=== PATIENT | female | born 1965 | race Caucasian/White ===

== ENCOUNTER 2025-03-04 00:54 | Emergency (ER) | payer BC ==
[~2025-03-04] VITALS: Ht 167.6 cm; Wt 65.9 kg
[2025-03-04 00:59] VITALS: BP 116/40; PULSE 61; O2SAT 97
[2025-03-04 01:55] VITALS: RESP 10
--- NOTE | 2025-03-04 02:29 | Physician Documentation ---
History of Present Illness ~ Chief Complaint: See Chief Complaint Stated Complaint: HANDS AND FEET ICHY Time Seen by MD: 02:03 Mode of Arrival: POV HPI This is a very pleasant 59-year-old female who presents for evaluation of sudden onset unprovoked bilateral palm and swollen redness and itching that began approximately 11:00 p.m.. No obvious trigger provocation. She does report that she had spent 9 hours driving earlier today because she had to take a passport to her son in [place] and drive back. She also consumed a unusual high amount of water today on advice of her daughter. Otherwise no unusual e xposures, no new contacts, no new foods. No known history of liver disease. Does not drink. Does not take any estrogen supplementation. She is generally healthy. Reports a small right upper quadrant cramp earlier today, now resolved. Does not smoke, does not drink, does not do drugs Medication Reconciliation Allergies: Coded Allergies: No Known Allergies (Unverified , 03/04/25) Review of Systems ROS 10 point review of systems was performed and unless noted above in HPI is negative for acute process/complaint. Physical Exam Vital Signs: Temperature: 97.8, Source: Temporal, Heart Rate: 61, Respiratory Rate: 10, BP: 116/40, Pulse Oximetry: 97, Weight: 65.910 Physical Exam Physical examination: GENERAL: Awake, alert, oriented, GCS 15, no apparent distress, non-toxic appearing, answers questions, follows commands appropriately. HEENT: Atraumatic, normocephalic, pupils equal, extraocular muscles intact Active gross movements, sclerae anicteric, mucus membranes moist, no stridor. NECK: Midline, no JVD CARDIOVASCULAR: Good skin perfusion without evidence of pallor, mottling. PULMONARY: Nonlabored, symmetric chest rise, no audible wheezing, no accessory muscle use, no respiratory distress, speaking in full sentences. GASTROINTESTINAL: Not distended. NEUROLOGIC: Lucid with normal mental status. Normal facial symmetry. Moves all extremities symmetrically and with purpose. No truncal ataxia. Speech is fluid without evidence of dysarthria or aphasia, no focal deficits appreciated. EXTREMITIES: Acute deformities Skin: warm, dry PSYCHIATRIC: Normal affect, normal insight, normal concentration. Focused exam: [] Bilateral palms and soles examined. Currently patient is asymptomatic, her pruritus has resolved and therefore there is no erythema. There is no rash. No scaling changes. No skin breakdown. Progress Results/Orders Results/Orders Vital Signs 03/04/25 03/04/25 03/04/25 00:59 01:55 03:06 Temp 97.8 97.8 Pulse 61 Resp 16 10 B/P (MAP) 116/40 Pulse Ox 97 Medical Decision Making Findings Facility Status: ED Holds, RME process The plan was discussed with the patient, who demonstrates clear understanding of the plan and is in agreement with the plan unless otherwise noted in the chart. All questions have been answered, all concerns were addressed unless otherwise documented. I was available throughout their ED stay for frequent reassessment and questions. Differential Diagnoses (considered and possible or likely): [Cholestasis, estrogen toxicity, less likely allergic reaction, less likely psoriasis, less likely eczema, less likely malignancy, not consistent with angioedema] ??Differential Diagnoses (considered and unlikely, not requiring evaluation currently): [See above] MDM Data Please see [facility] for the following: Independent Historians and external Records Review. Historian: [Patient] Independent Historians: ?[None] Medication Management: [Reviewed medication list] Social History and determinants: [Reviewed] Please see the body of the note for the following: Any independent inter pretations of ECG, imaging studies. All vitals signs/haemodynamics, ordered tests were independently reviewed and interpreted by myself. Nursing triage complaint and vitals reviewed, additional nursing notes were reviewed as available and I agree unless otherwise noted or documented in contradiction in the chart Vital Signs: Independently reviewed Labs: Independently interpreted Imaging: Independently interpreted Old Medical Records: Independently reviewed, see HPI for relevant summary and information Pulse Oximetry: [98%] interpreted as [normal on room air] by me Additionally notably showing: [Hemodynamically stable] Tests considered but not ordered include: [Hematologic workup and imaging has been considered but does not appear to be necessary given clinical nature of diagnosis] Social Determinants of Health Impact: Patient was evaluated in [facility], [facility] [place] to healthcare due to below par ratio of patient to medical providers. [] Comorbid Conditions Impacting Present Evaluation and Care/Treatment: [] Management Discussions with other Healthcare Providers: [] Treatment and Disposition Medication Management (Given or considered): []. See EMR for details Consideration for Hospitalization/Escalation/Deescalation of Care: Admission for observation has been considered, [however the patient is able to tolerate p.o., their symptoms are controlled, they are able to rely on oral medications, and their chief complaint/diagnosis can be managed on outpatient basis.] ?ED Course:?[Unfortunately I am not able to order laboratory studies such as bile salts that may be appropriate for evaluation of pruritus of palms and soles. The patient will have to follow-up with the PCP for further workup] ?Shared decision making:?[Patient is hemodynamically stable for discharge home with follow with their primary care provider. [ ] Specific and cautious return precautions provided and discussed with full understanding. Any incidental findings were also discussed and follow up recommendations given. [] All questions answered. Patient/family were able to verbalize back return precautions. Patient/family agree to plan. Copies of imaging and laboratory studies were provided.] Code status:?FULL Please see the full Electronic Medical Record for full details of nursing documentation, medications list, other records of complete past medical history and conditions, vital signs, laboratory studies, and any radiologic study interpretations by radiologists. Portions of this note were completed using [employer] dictation software and as a result there may exist minor errors in spelling. I have reviewed elements of past family and social history and agree as included in note. Departure Disposition: 01 HOME / SELF CARE / HOMELESS Impression: Primary Impression: Pruritus of palm Additional Impression: Solar pruritus Condition: Improved Additional Instructions: You need to follow-up with your primary care provider to criteria investigation of this itchy palms and soles. You may need an ultrasound of the liver, estrogen levels, levels of bile salts, and potentially advanced imaging of your liver with CT or MRI. If his symptoms persist you may need to take medication that targets the root cause of your itching as determined by your primary care provider. Referrals: NO PRIMARY CARE PROVIDER (PCP) Education Educated: Patient Educated regarding: diagnosis, treatment, prognosis, need for follow up Signature Scribe Signature: No scribe Attestation: This note accurately reflects clinical decisions, work performed by myself, Magdaleno Mai, MAGDALENO MCFADDEN DO Mar 04, 2025 02:29
[2025-03-04 03:06] VITALS: TEMP 97.8
== END 2025-03-04 03:06 | disposition home or self-care (01) ==
LOC: ER 00:57
DX: L29.89 Other pruritus (principal)
CPT/HCPCS: 99281